=== PATIENT | female | born 1950 | race Caucasian/White ===

== ENCOUNTER 2017-11-13 13:59 | Outpatient (REF) | payer MEDICARE, OTHER, SELFPAY ==
[2017-11-13 22:21] LABS: HCT 39.4 % (36.0-46.0); HGB 12.9 g/dL (12.0-15.5); Mean Corp. HGB Concentration 32.7 g/dL (32.0-36.0); Mean Corpuscular Hemoglobin 30.3 pg (27.0-33.0); Mean Corpuscular Volume 92.5 fL (80-95); Mean Platelet Volume 12.4 fL (8.0-11.0); Platelet Count 230 x1000/uL (130-400); RBC 4.26 m/cumm (4.00-5.20); RBC Distribution Width 15.7 % (11.7-14.6); White Blood Cell Count 8.75 k/cumm (4.4-10.8)
[2017-11-13 22:35] LABS: Iron 88 ug/dL (50-175); Total Iron Binding Capacity 318 ug/dL (250-450); Transferrin Sat 28 % (15-50)
[2017-11-13 22:42] LABS: Anion Gap 6.6 mmol/L (3-11); BUN 49 mg/dL (7-18); CO2 24.4 mmol/L (21.0-32.0); CREATININE 2.36 mg/dL (0.55-1.02); Calcium 9.6 mg/dL (8.5-10.1); Chloride 107 mmol/L (98-107); Cholesterol 155 mg/dL (50-200); Estimated GFR 20.47 (mL/min/1.73m2); Glucose 88 mg/dL (70-100); HDL Cholesterol 40 mg/dL (40-60); LDL CHOLESTEROL 88 mg/dL (<100); Sodium 138 mmol/L (136-145); Triglyceride 165 mg/dL (30-150)
[2017-11-13 22:54] LABS: PHOSPHORUS 4.2 mg/dL (2.6-4.7)
== END 2017-11-13 14:19 ==
LOC: NCHCN 13:59
PROVIDERS: Visit Provider Family Medicine
DX: N18.5 Chronic kidney disease, stage 5 (principal); I25.10 Atherosclerotic heart disease of native coronary artery without angina pectoris; I10 Essential (primary) hypertension
CPT/HCPCS: 80048; 80061; 83721; 85027; 83540; 83550; 84100

== ENCOUNTER 2018-10-02 10:24 | Outpatient (REF) | payer MEDICARE, OTHER, SELFPAY ==
[2018-10-02 22:10] LABS: Anion Gap 11.8 mmol/L (3-11); BUN 31 mg/dL (7-18); CO2 24.2 mmol/L (21.0-32.0); CREATININE 1.93 mg/dL (0.55-1.02); Calcium 9.7 mg/dL (8.5-10.1); Chloride 107 mmol/L (98-107); Estimated GFR 25.74 (mL/min/1.73m2); Glucose 105 mg/dL (70-100); Potassium 4.7 mmol/L (3.5-5.1); Sodium 143 mmol/L (136-145)
== END 2018-10-02 10:44 ==
LOC: NCHCN 10:24
PROVIDERS: PCP Family Medicine; Visit Provider Family Medicine
DX: I10 Essential (primary) hypertension (principal)
CPT/HCPCS: 80048

== ENCOUNTER 2019-03-19 09:30 | Outpatient (REF) | payer MEDICARE, OTHER, SELFPAY ==
[2019-03-19 20:51] LABS: Albumin 3.9 g/dL (3.4-5.0); Anion Gap 13.9 mmol/L (3-11); BUN 42 mg/dL (7-18); CO2 21.1 mmol/L (21.0-32.0); Calcium 9.8 mg/dL (8.5-10.1); Chloride 107 mmol/L (98-107); Estimated GFR 27.82 (mL/min/1.73m2); Glucose 120 mg/dL (74-106); PHOSPHORUS 3.7 mg/dL (2.6-4.7); Potassium 4.6 mmol/L (3.5-5.1); Sodium 142 mmol/L (136-145)
[2019-03-19 21:15] LABS: HCT 39.3 % (36.0-46.0); HGB 12.7 g/dL (12.0-15.5); Mean Corp. HGB Concentration 32.3 g/dL (32.0-36.0); Mean Corpuscular Hemoglobin 31.4 pg (27.0-33.0); Mean Platelet Volume 12.3 fL (8.0-11.0); Platelet Count 297 x1000/uL (130-400); RBC 4.05 m/cumm (4.00-5.20); White Blood Cell Count 9.38 k/cumm (4.4-10.8)
[2019-03-19 21:28] LABS: COMMENT (LAB VIEW ONLY) 226.17 mg/dL
[2019-03-19 21:46] LABS: Microalb ug/mg Crea 300.9 ug/mg Cr
[2019-03-22 10:23] LABS: Parathyroid Hormone,Intact 107 pg/mL (19-88)
== END 2019-03-19 09:50 ==
LOC: LBN 09:30
PROVIDERS: PCP Family Medicine; Visit Provider Internal Medicine
DX: N18.4 Chronic kidney disease, stage 4 (severe) (principal); E83.9 Disorder of mineral metabolism, unspecified; M89.9 Disorder of bone, unspecified; I10 Essential (primary) hypertension; D63.1 Anemia in chronic kidney disease
CPT/HCPCS: 80069; 85027; 82043; 82570; 83970

== ENCOUNTER 2019-04-20 13:03 | Outpatient (REF) | payer MEDICARE, OTHER, SELFPAY ==
[2019-04-20 22:02] LABS: Anion Gap 9.2 mmol/L (3-11); BUN 47 mg/dL (7-18); CO2 27.8 mmol/L (21.0-32.0); CREATININE 2.18 mg/dL (0.55-1.02); Calcium 9.7 mg/dL (8.5-10.1); Chloride 104 mmol/L (98-107); Glucose 81 mg/dL (74-106); Potassium 4.8 mmol/L (3.5-5.1); Sodium 141 mmol/L (136-145)
== END 2019-04-20 13:23 ==
LOC: NCHCN 13:03
PROVIDERS: PCP Family Medicine; Visit Provider Family Medicine
DX: N18.4 Chronic kidney disease, stage 4 (severe) (principal)
CPT/HCPCS: 80048; 84443

== ENCOUNTER 2019-08-20 21:24 | Outpatient (REF) | payer MEDICARE, OTHER, SELFPAY ==
[2019-08-20 21:47] LABS: HCT 42.4 % (36.0-46.0); HGB 14.4 g/dL (12.0-15.5); Mean Corpuscular Hemoglobin 32.3 pg (27.0-33.0); Mean Corpuscular Volume 95.1 fL (80-95); Mean Platelet Volume 12.3 fL (8.0-11.0); Platelet Count 264 x1000/uL (130-400); RBC 4.46 m/cumm (4.00-5.20); RBC Distribution Width 14.2 % (11.7-14.6); White Blood Cell Count 10.09 k/cumm (4.4-10.8)
[2019-08-20 21:57] LABS: Albumin 3.8 g/dL (3.4-5.0); Anion Gap 8.1 mmol/L (3-11); BUN 34 mg/dL (7-18); CO2 29.9 mmol/L (21.0-32.0); Calcium 9.9 mg/dL (8.5-10.1); Chloride 101 mmol/L (98-107); Estimated GFR 23.28 (mL/min/1.73m2); Glucose 142 mg/dL (74-106); PHOSPHORUS 3.7 mg/dL (2.6-4.7); Potassium 3.8 mmol/L (3.5-5.1); Sodium 139 mmol/L (136-145)
[2019-08-23 12:43] LABS: Parathyroid Hormone,Intact 91 pg/mL (19-88)
== END 2019-08-20 21:44 ==
LOC: NCHCN 21:24
PROVIDERS: PCP Family Medicine; Visit Provider Internal Medicine
DX: N18.3 Chronic kidney disease, stage 3 (moderate) (principal); E87.5 Hyperkalemia; M89.9 Disorder of bone, unspecified; E83.9 Disorder of mineral metabolism, unspecified; D63.1 Anemia in chronic kidney disease
CPT/HCPCS: 80048; 80069; 85027; 82043; 82565; 82570; 83970

== ENCOUNTER 2019-08-23 22:15 | Outpatient (REF) | payer MEDICARE, OTHER, SELFPAY ==
[2019-08-23 22:57] LABS: Creatinine,Urine 48.67 mg/dL
[2019-08-23 23:25] LABS: COMMENT (LAB VIEW ONLY) 47.42 mg/dL
[2019-08-24 06:19] LABS: Microalb ug/mg Crea 378.7 ug/mg Cr
== END 2019-08-23 22:35 ==
LOC: NCHCN 22:15
PROVIDERS: Internal Medicine; PCP Family Medicine; Visit Provider Nurse Practitioner Family
DX: N18.3 Chronic kidney disease, stage 3 (moderate) (principal); I15.0 Renovascular hypertension
CPT/HCPCS: 82043; 82565; 82570

== ENCOUNTER 2019-11-22 20:51 | Outpatient (REF) | payer MEDICARE, OTHER, SELFPAY ==
[2019-11-22 21:24] LABS: Bilirubin Negative (Negative); Blood Negative (Negative); Clarity Clear (Clear); Glucose Negative (Negative); Ketones Negative (Negative); Leukocyte Esterase Negative (Negative); Nitrite Negative (Negative); Urobilinogen 0.2 EU/dL (Up TO 0.2)
[2019-11-22 21:41] LABS: Bacteria Few HPF (Negative); C & S Indicated? No/Sq. Contamination; Casts Negative LPF (Negative); Crystals Negative HPF (Negative); Epithelial Cells Many HPF (Negative); Mucus Moderate (Negative); RBC 0-2 HPF (0-2)
[2019-11-22 22:25] LABS: Creatinine,Urine 80.99 mg/dL
[2019-11-22 22:34] LABS: COMMENT (LAB VIEW ONLY) 78.77 mg/dL
[2019-11-22 22:35] LABS: BUN 35 mg/dL (7-18); CREATININE 2.06 mg/dL (0.55-1.02); Calcium 9.6 mg/dL (8.5-10.1); Chloride 100 mmol/L (98-107); Estimated GFR 23.81 (mL/min/1.73m2); Glucose 149 mg/dL (74-106); PHOSPHORUS 4.1 mg/dL (2.6-4.7); Potassium 4.1 mmol/L (3.5-5.1); Sodium 137 mmol/L (136-145)
== END 2019-11-22 21:11 ==
LOC: NCHCN 20:51
PROVIDERS: PCP Family Medicine; Visit Provider Family Medicine
DX: N18.4 Chronic kidney disease, stage 4 (severe) (principal)
CPT/HCPCS: 80048; 81003; 81015; 82043; 82565; 82570; 84100

== ENCOUNTER 2020-03-13 19:02 | Outpatient (REF) | payer MEDICARE, OTHER, SELFPAY ==
[2020-03-13 19:19] LABS: HCT 44.5 % (36.0-46.0); HGB 14.9 g/dL (11.2-15.7); MCH 31.6 pg (27.0-33.0); MCHC 33.5 % (32.0-36.0); MCV 94.5 fL (80-95); MPV 11.4 fL (8.0-11.0); Platelet Count 300 10^3/uL (130-400); RBC 4.71 10^6/uL (3.93-5.22); RDW 13.4 % (11.7-14.6); RDW-SD 47.4 fL; WBC 8.42 10^3/uL (4.4-10.8)
[2020-03-13 19:23] LABS: Bilirubin Negative (Negative); Blood Negative (Negative); Clarity Clear (Clear); Glucose Negative (Negative); Ketones Negative (Negative); Leukocyte Esterase Negative (Negative); Nitrite Negative (Negative); Specific Gravity >= 1.030 (1.005-1.025); Urobilinogen 0.2 EU/dL (Up TO 0.2); pH 5.5 (5-8)
[2020-03-13 20:09] LABS: COMMENT (LAB VIEW ONLY) 78.83 mg/dL
[2020-03-13 20:20] LABS: Albumin 4.1 g/dL (3.4-5.0); Anion Gap 8.4 mmol/L (3-11); BUN 29 mg/dL (7-18); CO2 26.6 mmol/L (21.0-32.0); CREATININE 1.75 mg/dL (0.55-1.02); Calcium 10.2 mg/dL (8.5-10.1); Chloride 103 mmol/L (98-107); Estimated GFR 28.65 (mL/min/1.73m2); Glucose 94 mg/dL (74-106); PHOSPHORUS 3.5 mg/dL (2.6-4.7); Potassium 4.3 mmol/L (3.5-5.1); Sodium 138 mmol/L (136-145)
[2020-03-13 20:22] LABS: Bacteria Negative HPF (Negative); C & S Indicated? No; Casts 0-2 Hyaline LPF (Negative); Crystals Negative HPF (Negative); Epithelial Cells Few HPF (Negative); Mucus Negative (Negative)
[2020-03-13 20:53] LABS: Microalb ug/mg Crea 340.9 ug/mg Cr
[2020-03-15 11:24] LABS: Parathyroid Hormone,Intact 74 pg/mL (19-88)
== END 2020-03-13 19:22 ==
LOC: NCHCN 19:02
PROVIDERS: PCP Family Medicine; Visit Provider Internal Medicine
DX: N18.4 Chronic kidney disease, stage 4 (severe) (principal); D63.1 Anemia in chronic kidney disease; E87.5 Hyperkalemia; E83.9 Disorder of mineral metabolism, unspecified; I70.1 Atherosclerosis of renal artery; I15.0 Renovascular hypertension; M89.9 Disorder of bone, unspecified; R80.9 Proteinuria, unspecified; N25.81 Secondary hyperparathyroidism of renal origin; Z72.0 Tobacco use
CPT/HCPCS: 80069; 85027; 81003; 81015; 82043; 82570; 83970

== ENCOUNTER 2020-10-09 10:36 | Outpatient (REF) | payer MEDICARE, OTHER, SELFPAY ==
[2020-10-09 15:35] LABS: HCT 39.5 % (36.0-46.0); MCH 31.5 pg (27.0-33.0); MCHC 32.9 % (32.0-36.0); MCV 95.6 fL (80-95); MPV 12.6 fL (8.0-11.0); Platelet Count 243 10^3/uL (130-400); RBC 4.13 10^6/uL (3.93-5.22); RDW-SD 49.3 fL; WBC 7.65 10^3/uL (4.4-10.8)
[2020-10-09 15:59] LABS: Bilirubin Negative (Negative); Blood Negative (Negative); Clarity Clear (Clear); Glucose Negative (Negative); Ketones Negative (Negative); Leukocyte Esterase Negative (Negative); Nitrite Negative (Negative); Urobilinogen 0.2 EU/dL (Up TO 0.2)
[2020-10-09 16:01] LABS: Calculated LDL 172 mg/dL (<100); Cholesterol 252 mg/dL (<200); HDL Cholesterol 45 mg/dL (40-60); Triglyceride 176 mg/dL (<150)
[2020-10-09 16:07] LABS: Albumin 3.9 g/dL (3.4-5.0); Anion Gap 10.8 mmol/L (3-11); BUN 52 mg/dL (7-18); CO2 26.2 mmol/L (21.0-32.0); CREATININE 2.5 mg/dL (0.55-1.02); Chloride 102 mmol/L (98-107); Estimated GFR 18.99 (mL/min/1.73m2); Glucose 92 mg/dL (74-106); PHOSPHORUS 4.2 mg/dL (2.6-4.7); Potassium 4.3 mmol/L (3.5-5.1); Sodium 139 mmol/L (136-145)
[2020-10-09 16:10] LABS: Bacteria Moderate HPF (Negative); C & S Indicated? No/Sq. Contamination; Casts Negative LPF (Negative); Crystals Negative HPF (Negative); Epithelial Cells Many HPF (Negative); Mucus Trace (Negative); RBC 0-2 HPF (0-2)
[2020-10-09 16:45] LABS: COMMENT (LAB VIEW ONLY) 108.55 mg/dL
[2020-10-09 16:48] LABS: Microalb ug/mg Crea 277.5 ug/mg Cr
[2020-10-10 09:18] LABS: Parathyroid Hormone,Intact 120 pg/mL (19-88)
== END 2020-10-09 10:37 | disposition home or self-care (01) ==
LOC: LBN 10:36
PROVIDERS: Internal Medicine Cardiovascular Disease; PCP Family Medicine; Visit Provider Internal Medicine
DX: I15.0 Renovascular hypertension (principal); I70.1 Atherosclerosis of renal artery; E78.00 Pure hypercholesterolemia, unspecified; N18.4 Chronic kidney disease, stage 4 (severe); E83.9 Disorder of mineral metabolism, unspecified; M89.9 Disorder of bone, unspecified; D63.1 Anemia in chronic kidney disease; R80.9 Proteinuria, unspecified
CPT/HCPCS: 80051; 80061; 80069; 85027; 81003; 81015; 82043; 82570; 83970

== ENCOUNTER 2021-01-29 11:39 | Outpatient (REF) | payer MEDICARE, OTHER, SELFPAY ==
[2021-01-29 16:03] LABS: Anion Gap 8.6 mmol/L (3-11); BUN 39 mg/dL (7-18); CO2 28.4 mmol/L (21.0-32.0); CREATININE 2.2 mg/dL (0.55-1.02); Calcium 9.6 mg/dL (8.5-10.1); Chloride 100 mmol/L (98-107); Estimated GFR 21.94 (mL/min/1.73m2); Glucose 80 mg/dL (74-106); Magnesium 2.4 mg/dL (1.8-2.4); PHOSPHORUS 3.3 mg/dL (2.6-4.7); Sodium 137 mmol/L (136-145)
[2021-01-29 16:30] LABS: Vitamin D 25 Total 47.7 ng/mL (30-100)
[2021-01-30 10:12] LABS: Parathyroid Hormone,Intact 124 pg/mL (19-88)
== END 2021-01-29 11:40 | disposition home or self-care (01) ==
LOC: LBN 11:39
PROVIDERS: Visit Provider Internal Medicine
DX: N18.4 Chronic kidney disease, stage 4 (severe) (principal); E87.5 Hyperkalemia; E83.9 Disorder of mineral metabolism, unspecified; I15.0 Renovascular hypertension; N25.81 Secondary hyperparathyroidism of renal origin; R80.9 Proteinuria, unspecified
CPT/HCPCS: 80069; 82306; 81003; 82043; 82570; 83735; 83970

== ENCOUNTER 2021-02-02 14:06 | Outpatient (REF) | payer MEDICARE, OTHER, SELFPAY ==
[2021-02-02 17:58] LABS: Bilirubin Negative (Negative); Blood Negative (Negative); Clarity Clear (Clear); Glucose Negative (Negative); Ketones Negative (Negative); Leukocyte Esterase Negative (Negative); Nitrite Negative (Negative); Urobilinogen 0.2 EU/dL (Up TO 0.2)
[2021-02-02 18:13] LABS: Bacteria Negative HPF (Negative); C & S Indicated? No; Crystals Negative HPF (Negative); Epithelial Cells Few HPF (Negative); Mucus Negative (Negative); RBC 0-2 HPF (0-2); WBC Negative HPF (0-5)
[2021-02-02 18:46] LABS: COMMENT (LAB VIEW ONLY) 68.25 mg/dL
[2021-02-02 19:25] LABS: Microalb ug/mg Crea 422.6 ug/mg Cr
== END 2021-02-02 14:07 | disposition home or self-care (01) ==
LOC: LBN 14:06
PROVIDERS: PCP Family Medicine; Visit Provider Internal Medicine
DX: N18.4 Chronic kidney disease, stage 4 (severe) (principal); R80.9 Proteinuria, unspecified; I15.0 Renovascular hypertension
CPT/HCPCS: 81003; 81015; 82043; 82570

== ENCOUNTER 2023-10-16 22:24 | Outpatient (REF) | payer MEDICARE, OTHER, SELFPAY ==
[2023-10-16 15:04] LABS: BUN 51 mg/dL (7-18); CREATININE 2.6 mg/dL (0.55-1.02); Calcium 9.9 mg/dL (8.5-10.1); Chloride 106 mmol/L (98-107); Estimated GFR 18.78 (mL/min/1.73m2); Glucose 96 mg/dL (74-106); NT-proBNP 4590 pg/mL (<300); Potassium 4.9 mmol/L (3.5-5.1); Sodium 141 mmol/L (136-145)
[2023-10-16 15:12] LABS: Anion Gap 8.7 mmol/L (3-11)
[2023-10-16 15:13] LABS: CO2 26.3 mmol/L (21.0-32.0)
== END 2023-10-16 22:25 | disposition home or self-care (01) ==
LOC: NCHCN 22:24
PROVIDERS: Visit Provider Family Medicine
DX: I10 Essential (primary) hypertension (principal)
CPT/HCPCS: 80048; 83880